=== PATIENT | male | born 1985 | race Caucasian/White ===

== ENCOUNTER 2017-04-30 12:35 | Inpatient (IN) ==
[2017-04-30] MEDS ORDERED: *HR* HYDROmorphone (PF) 1 MG/ML SYRINGE IVP ONE (13:10)
[2017-04-30] MEDS ORDERED: Ketorolac 30 MG/ML VIAL IVP ONE (13:10)
[2017-04-30] MEDS ORDERED: Ondansetron 4 MG/2 ML VIAL IVP ONE (13:10)
--- NOTE | 2017-04-30 13:26 | Emergency Department Note ---
Disposition Clinical Impression: Cholecystitis, acute Disposition: Admitted As Inpatient Time of Disposition: 16:54 General Adult HPI - General Chief complaint: ED Abdominal Pain Stated complaint: RUQ pain x1 day Time Seen by Provider: 04/30/17 12:50 Source: patient Mode of arrival: ambulatory Limitations: no limitations Nursing Notes Reviewed: Yes Vital Signs Reviewed: Yes - History of Present Illness HPI Narrative: 31 yo male with PMHx GERD presents with 16 hour history of colicky RUQ abdominal pain. Patient ate 6 hotdogs last night after which he became nauseated. He has had 4 episodes of nausea and vomitting since then. Patient describes his pain as sharp with radiation to his right back shoulder. He has had similar episodes in the past couple months including one last week that was almost identical in nature and quality but only lasted for 6 hours. This episode is the most severe he has experienced. His last bowel movement was yesterday morning, although he reports experiencing alternating bouts of constipation and diarrhea for the past 3 months. He describes his BM yesterday as "fatty." He denies any dysuria, diarrhea, headaches, substernal chest pain, or lower extremity edema. He has no appetite and hasn't eaten since last night. He reports some subjective fevers, but never measured. Pain Scale: 8 - Related Data Home Medications Medication Instructions Recorded Confirmed RX: No Known Home Drugs 04/30/17 04/30/17 Allergies Allergy/AdvReac Type Severity Reaction Status Date / Time No Known Allergies Allergy Verified 04/30/17 12:42 Constitutional: Denies: fever, weight change Cardiovascular: Denies: chest pain, palpitations, dyspnea on exertion, edema Respiratory: Denies: cough, dyspnea, hemoptysis Gastrointestinal: Reports: abdominal pain, nausea, vomiting. Denies: diarrhea, hematemesis, melena, hematochezia Genitourinary: Denies: urgency, dysuria Neurological: Denies: headache, weakness Past Medical History - Past Medical History Medical history: Reports: no medical history Psychiatric history: Reports: no psych history - Social History Smoking Status: Never smoker Smokeless Tobacco Status: No Alcohol use: Reports: rarely Drug use: Reports: none Physical Exam - General Limitations: no limitations General appearance: alert, in no apparent distress - Head Head exam: atraumatic, normocephalic - Eye Eye exam: Present: normal appearance - Neck Neck exam: Present: normal inspection - Chest Chest inspection: Present: normal inspection, symmetric chest wall rise - Respiratory Respiratory exam: Present: normal lung sounds bilaterally. Absent: respiratory distress, wheezes, stridor - Cardiovascular Cardiovascular exam: Present: normal rhythm, tachycardia, normal heart sounds. Absent: systolic murmur, diastolic murmur, rubs, gallop - Abdominal Exam Abdominal exam: Present: soft, tenderness, normal bowel sounds, Millan's sign. Absent: distention, guarding, rebound Abdominal tenderness: Present: RUQ, moderate Course Course Narrative: Mr. Vasquez is a 31 yo male with PMHx of GERD pw 16 hour history of N/V and colickly RUQ abdominal pain after consumption of 6 hotdogs. A bedside US was performed by Dr. Krishnan which showed some possible biliary sludge. Will order labs , fluids, analgesia, and US gallbladder. - Reevaluation(s) Reevaluation #1: Patient given Dilaudid, Toradol, Zofran, and IV fluids. US of Gallbladder shows no acute abnormalities. Labs show leukocytosis with left shift and an elevated lactic acid. Patient's pain has migrated to include the RLQ as well. No rebound or guarding. Will order CT abdomen and pelvis with IV contrast. Reevaluation #2: CT scan of abdomen and pelvis shows acute cholecystitis. Will admit patient to surgery. Vital Signs Temperature 98.0 F 04/30/17 12:37 Pulse Rate 117 04/30/17 12:37 Respiratory Rate 16 04/30/17 12:37 Blood Pressure 181/131 04/30/17 12:37 O2 Sat by Pulse Oximetry 94 04/30/17 12:37 Temperature 98.0 F 04/30/17 12:37 Pulse Rate 102 04/30/17 16:30 Respiratory Rate 16 04/30/17 16:30 Blood Pressure 156/100 04/30/17 16:30 O2 Sat by Pulse Oximetry 100 04/30/17 16:30 Oxygen Delivery Oxygen Delivery Room Air Medical Decision Making - Medical Records Medical records reviewed: Yes I reviewed the patient's medical records. - Lab Data Lab results reviewed: Yes I reviewed the patient's lab results. Result diagrams: 04/30/17 13:28 04/30/17 13:28 Lab Results 08/02/17 08/02/17 08/02/17 Range/Units 13:28 13:28 13:28 WBC 15.2 H (4.3-11.1) K/mcL RBC 5.15 (4.19-5.50) M/mcL Hgb 14.1 (12.9-16.9) g/dL Hct 44.0 (37.5-50.1) % MCV 85.4 (83.0-100.0) fL MCH 27.4 L (28.0-33.3) pg MCHC 32.0 (31.6-35.5) g/dL RDW 13.0 (11.5-14.5) % Plt Count 347 (140-400) K/mcL MPV 8.9 L (9.4-12.4) fL Immature Gran % 0.3 (0-4) % Seg Neutrophils % 90.1 % Lymphocytes % 5.4 % Monocytes % 4.1 % Eosinophils % 0.0 % Basophils % 0.1 % Neutrophils # 13.7 H (1.6-8.9) K/mcL Lymphocytes # 0.8 (0.6-4.6) K/mcL Monocytes # 0.6 (0.0-1.3) K/mcL Eosinophils # 0.0 (0.0-0.6) K/mcL Basophils # 0.0 (0.0-0.2) K/mcL Sodium 138 (136-145) mEq/L Potassium 4.2 (3.5-4.5) mEq/L Chloride 104 (98-109) mEq/L Carbon Dioxide 27 (19-29) mEq/L BUN 10 (8-26) mg/dL Creatinine 0.92 (0.72-1.25) mg/dL Est GFR ( Amer) > 60 (> 60) Est GFR (Non-Af Amer) > 60 (> 60) BUN/Creatinine Ratio 11 (6-26) Glucose 136 H (70-99) mg/dL Calculated Osmolality 287 (280-300) Lactic Acid 2.5 H (0.5-2.2) mmol/L Calcium 9.7 (8.6-10.8) mg/dL Total Bilirubin 0.5 (0.2-1.2) mg/dL Direct Bilirubin 0.2 (0.0-0.5) mg/dL Indirect Bilirubin 0.3 (0.0-1.2) mg/dL AST 17 (5-34) Units/L ALT 38 (0-55) Units/L Alkaline Phosphatase 105 (38-126) Units/L Serum Total Protein 7.8 (6.0-8.3) g/dL Albumin 4.0 (3.5-5.0) g/dL Globulin 3.8 H (2.4-3.5) g/dL Albumin/Globulin Ratio 1.1 (1.1-2.2) Lipase 10 (8-78) Units/L - Radiology Data Radiology results reviewed: Yes I reviewed the patient's radiology results. Gallbladder Ultrasound 04/30/17 13:10 IMPRESSION: No cholelithiasis or significant dilation of the common duct. Moderate hepatic steatosis. D/ / Jak Hawkins MD / Jak Hawkins MD Interpreting Provider: Jak Hawkins MD Abdomen/Pelvis CT 04/30/17 14:21 IMPRESSION: Mild pericholecystic stranding consistent with mild acute cholecystitis. Suspected small noncalcified gallstones present. Large complex cyst of the spleen. Small nonobstructing calculus in the lower pole of the left kidney. Normal appendix. [id number] fatty infiltration of the liver. D/ / Edin Avila MD / Edin Avila MD Interpreting Provider: Edin Avila MD Attestation Statement - Attestation Attestation: I personally interviewed and examined this patient and my medical decision- making was reviewed with the Resident Physician, Dr. Loco. I agree with the documented findings, disposition and treatment plan as described except to the extent set forth below. Patient is a 31-year-old obese white male who presents to emergency department today with complaints of a 24-hour history of moderate right upper quadrant abdominal pain that radiates through to the tip of the shoulder blade associated with nausea and vomiting. Patient states he had a similar episode about a week ago but had resolved spontaneously. The current episode began following him attending a baseball game where he had had 6 hotdogs. Patient has reproducible tenderness with mild guarding in the right upper quadrant and also some mild tenderness to palpation in the right mid and low abdomen. Patient also states that he felt constipated associated with these symptoms and attempted an enema last night with no increase in stool output. Physical exam findings as documented. And arrived initially hypertensive but following pain medicine administration and had improvement in his vital signs. Labs show mild leukocytosis with left shift but normal hepatic panel. We were clinically suspicious of gallbladder disease so patient was sent initially for right upper quadrant ultrasound. Ultrasound report stated that there were fatty liver changes but no acute findings on ultrasound. Patient remains moderately tender in the right upper quadrant so we wanted to ensure there was no other etiology for this pain such as retrocecal appendicitis or bowel issue. Patient went for CT scan of the abdomen and pelvis with IV contrast, and radiology interpreted the scan with acute cholecystitis. IV antibiotics were initiated and case was discussed with Dr. Ulloa who is on-call for surgery. He agreed to consult on the patient and recommended admission to medicine. Case was discussed with the hospitalist who accepted patient for admission. Patient remains hemodynamically stable and comfortable at this time with stable vital signs.
[2017-04-30 13:35] LABS: Basophils % 0.1 %; Hemoglobin 14.1 g/dL (12.9-16.9); Immature Granulocytes % 0.3 % (0-4); Lymphocytes # 0.8 K/mcL (0.6-4.6); Lymphocytes % 5.4 %; Mean Corpuscular Hemoglobin 27.4 pg (28.0-33.3); Mean Corpuscular Volume 85.4 fL (83.0-100.0); Mean Platelet Volume 8.9 fL (9.4-12.4); Monocytes # 0.6 K/mcL (0.0-1.3); Monocytes % 4.1 %; Neutrophils # 13.7 K/mcL (1.6-8.9); Platelet Count 347 K/mcL (140-400); Red Blood Count 5.15 M/mcL (4.19-5.50); Segmented Neutrophils % 90.1 %
[2017-04-30] MEDS ORDERED: 0.9 % Sodium Chloride 1,000 ML IVC ONE (13:47)
[2017-04-30 13:49] LABS: Alanine Aminotransferase 38 Units/L (0-55); Albumin/Globulin Ratio 1.1 (1.1-2.2); Alkaline Phosphatase 105 Units/L (38-126); Aspartate Amino Transferase 17 Units/L (5-34); BUN/Creatinine Ratio 11 (6-26); Bilirubin,Direct 0.2 mg/dL (0.0-0.5); Bilirubin,Indirect 0.3 mg/dL (0.0-1.2); Bilirubin,Total 0.5 mg/dL (0.2-1.2); Blood Urea Nitrogen 10 mg/dL (8-26); Calcium 9.7 mg/dL (8.6-10.8); Carbon Dioxide 27 mEq/L (19-29); Chloride 104 mEq/L (98-109); Globulin 3.8 g/dL (2.4-3.5); Glucose 136 mg/dL (70-99); Lipase 10 Units/L (8-78); Osmolality,Calculated 287 (280-300); Potassium 4.2 mEq/L (3.5-4.5); Sodium 138 mEq/L (136-145); Total Protein 7.8 g/dL (6.0-8.3); eGFR For African Americans > 60 (> 60); eGFR For Non-African Americans > 60 (> 60)
[2017-04-30] MEDS ORDERED: Piperacillin/Tazobactam 3.375 GM in D5% in Water (Mini-Bag+) 100 ML IVPB ONE (16:14)
[2017-04-30] MEDS: 0.9 % Sodium Chloride 1,000 ML IVC SCH ×4 (16:37→21:14)
[2017-04-30] MEDS ORDERED: Ondansetron 4 MG/2 ML VIAL IVP PRN (16:56)
[2017-04-30] MEDS ORDERED: Naloxone 0.4 MG/ML INJ IVP PRN (16:56)
--- NOTE | 2017-04-30 17:12 | Internal Med History&Physical ---
<Rey Maya J - Last Filed: 04/30/17 17:08> Date of Encounter: 04/30/17 Time of Encounter: 17:08 Assessment and Plan (1) Cholecystitis, acute Current visit: Yes Status: Acute Presented with abdominal pain that started the evening prior to admission. Meets sepsis criteria with WBC 15K, Lactic acid 2.5 and subjective fevers. Does not appear toxic or acute. ABD CT showed cholecystitis zosyn given in the ED. Changed ATB to Rocephin and Flagyl Dilaudid for pain management, Zofran for nausea. CBC, BMP, Lipase. General surgery was consulted. Repeat lactic acid pending. (2) High blood pressure Current visit: Yes Status: Acute Blood pressure elevated in the ED. Likely d/t uncontrolled pain but may have underlying HTN. Will continue to monitor BP and initiate antihypertensives as needed. Qualifiers: Hypertension type: unspecified Qualified Code(s): I10 - Essential (primary ) hypertension (3) DVT prophylaxis Current visit: Yes Status: Acute Critical access hospital Internal Medicine - H&P: HPI Chief complaint: abdominal pain Admitted From: Home Plans for Post Hospital Care: Home History of present illness: Mr. Vasquez is a 31 year old male with no PMH who presented to [facility] with abdominal pain on 04-30-17. He was found to have cholecystitis and was admitted for medical management and surgical consult. Information obtained from chart review and patient report. ABD pain started yesterday evening after eating 6 hotdogs and drinking a beer. Taking Acetaminophen at home and for abdominal pain and reports it not helping. Past Med Surg Social Fam HX - Past Medical History Medical history: no medical history Psychiatric history: no psych history - Past Surgical History Surgical History: other (tonsillectomy) - Social History Smoking Status: Never smoker Smokeless Tobacco Status: No Alcohol use: rarely Drug use: none - Additional Family History Additional family history: CAD grandparents Internal Medicine - H&P: Meds No Known Home Drugs 04/30/17 [History] Allergies No Known Allergies Allergy (Verified 04/30/17 12:42) All Systems PM: A 10-system review of systems was performed and is negative for pertinent findings except as documented above in the HPI. - Constitutional Constitutional: no chills, no fever(s), no night sweats - EENT Eyes: no change in vision, no discharge, no pain, no photophobia Ears: no ear discharge, no ear pain, no tinnitus Nose, mouth and throat: no dysphagia, no nasal discharge, no neck pain, no sore throat - Cardiovascular Cardiovascular ROS IM: no chest pain, no diaphoresis, no dyspnea, no lightheadedness, no palpitations, no syncope - Respiratory Respiratory: no cough, no dyspnea, no wheezing, no excessive phlegm production - Gastrointestinal Gastrointestinal: abdominal pain, constipation, nausea, no diarrhea, no hematemesis, no hematochezia, no melena, no vomiting - Musculoskeletal Musculoskeletal ROS IM: no numbness, no tingling - Integumentary Integumentary IM: no rash, no unusual bruising - Neurological Neurological ROS: no confusion, no convulsions, no focal weakness, no numbness, no tingling, no tremor(s) - Hematologic/Lymphatic Hematologic/Lymphatic: no easy bruising - Constitutional Vitals: Temp Pulse Resp BP Pulse Ox 98.0 F 102 16 154/98 100 04/30/17 12:37 04/30/17 16:30 04/30/17 17:00 04/30/17 17:00 04/30/17 16:30 - Head Head exam: Present: atraumatic, normocephalic - Eye Eye exam: Present: PERRL, conjuntiva pink, sclera anicteric Pupils: Present: PERRL - Neck Neck exam general surgery: Present: supple, trachea midline. Absent: lymphadenopathy - Respiratory Respiratory exam: Present: CTAB. Absent: accessory muscle use, rales, rhonchi, wheezes - Cardiovascular Cardiovascular exam: Present: RRR, +S1, +S2. Absent: diastolic murmur, gallop, rubs, systolic murmur - GI/Abdominal GI/Abdominal exam: Present: normal bowel sounds, soft, tenderness, no peritoneal signs. Absent: distended Additional comments: RUQ tenderness - Extremities Exam Extremities exam: Present: warm, radial pulses palpable and symetrical. Absent : calf tenderness, cyanotic, pedal edema - Neurological Exam Neurological exam: Present: CN II-XII intact, oriented X3, no focal deficits. Absent: pronater drift, facial droop, speech deficit - Skin Skin exam: Present: dry, intact Internal Med - H&P Results - Labs CBC & Chem 7: 04/30/17 13:28 04/30/17 13:28 <Hammad Shrestha H - Last Filed: 04/30/17 17:48> Date of Encounter: 04/30/17 Internal Medicine - H&P: HPI History of present illness: Mr. Vasquez is a 31 year old male All Systems PM: A 10-system review of systems was performed and is negative for pertinent findings except as documented above in the HPI. - Constitutional Vitals: Temp Pulse Resp BP Pulse Ox 98.0 F 95 16 148/88 96 04/30/17 17:17 04/30/17 17:17 04/30/17 17:17 04/30/17 17:17 04/30/17 17:17 Internal Med - H&P Results - Labs CBC & Chem 7: 04/30/17 13:28 04/30/17 13:28 - Attending Attestation Acute cholecystitis, continue ciprofloxacin and Flagyl IV Nothing by mouth, surgery consult Time spent on this admission 40 minutes For this encounter, I have reviewed the FERRYBO[employer] OPERATOR or PA documentation, treatment plan, and medical decision making; and I have had face to face time with this patient.
[2017-04-30] MEDS: MetroNIDAZOLE 500 MG/100 ML 500 MG/100 ML BAG IVPB SCH (23:55)
[2017-05-01] MEDS: *HR* HYDROmorphone (PF) 1 MG/ML SYRINGE IVP PRN ×2 (00:03→06:30)
[2017-05-01 04:34] LABS: Basophils % 0.3 %; Eosinophils # 0.1 K/mcL (0.0-0.6); Eosinophils % 0.9 %; Hematocrit 38.9 % (37.5-50.1); Hemoglobin 12.7 g/dL (12.9-16.9); Immature Granulocytes % 0.2 % (0-4); Lymphocytes # 1.4 K/mcL (0.6-4.6); Lymphocytes % 14.2 %; Mean Corpuscular HGB Conc 32.6 g/dL (31.6-35.5); Mean Corpuscular Hemoglobin 27.9 pg (28.0-33.3); Mean Corpuscular Volume 85.3 fL (83.0-100.0); Monocytes # 0.9 K/mcL (0.0-1.3); Monocytes % 9.5 %; Neutrophils # 7.3 K/mcL (1.6-8.9); Platelet Count 284 K/mcL (140-400); Red Blood Count 4.56 M/mcL (4.19-5.50); Red Cell Distribution Width 13.3 % (11.5-14.5); Segmented Neutrophils % 74.9 %
[2017-05-01 04:46] LABS: Hemoglobin A1C 5.5 %
[2017-05-01 04:55] LABS: Alanine Aminotransferase 30 Units/L (0-55); Albumin 3.2 g/dL (3.5-5.0); Alkaline Phosphatase 88 Units/L (38-126); Aspartate Amino Transferase 16 Units/L (5-34); BUN/Creatinine Ratio 10 (6-26); Bilirubin,Total 0.5 mg/dL (0.2-1.2); Blood Urea Nitrogen 9 mg/dL (8-26); Calcium 8.4 mg/dL (8.6-10.8); Carbon Dioxide 28 mEq/L (19-29); Chloride 106 mEq/L (98-109); Globulin 3.3 g/dL (2.4-3.5); Glucose 114 mg/dL (70-99); Lipase 81 Units/L (8-78); Osmolality,Calculated 288 (280-300); Potassium 3.9 mEq/L (3.5-4.5); Sodium 139 mEq/L (136-145); Total Protein 6.5 g/dL (6.0-8.3); eGFR For African Americans > 60 (> 60); eGFR For Non-African Americans > 60 (> 60)
[2017-05-01] MEDS ORDERED: *HR* Enoxaparin 40 MG/0.4 ML SYRINGE SQ SCH (06:00)
[2017-05-01] MEDS: MetroNIDAZOLE 500 MG/100 ML 500 MG/100 ML BAG IVPB SCH (07:53)
--- NOTE | 2017-05-01 08:08 | Anesthesia Evaluation PreOp ---
Date of Encounter: 05/01/17 Time of Encounter: 08:01 - Past History Planned Operation: Lap Maxine Cardiac History: HTN Anesthesia History: No Prior Anesthetic Complications, Past Anesthesia (T&A 1991 ) Alcohol Use: occasionally Drug use: none Medications and Allergies No Known Home Drugs 04/30/17 [History] Allergies No Known Allergies Allergy (Verified 04/30/17 12:42) - Meds/Allergy Pre-op Review Medications Reviewed: Yes Allergies Reviewed: Yes Beta Blockers on Current Med List: No Anesthesia Results - Labs 05/01/17 03:53 05/01/17 03:53 Laboratory Results WBC 9.7 K/mcL (4.3-11.1) 05/01/17 03:53 RBC 4.56 M/mcL (4.19-5.50) 05/01/17 03:53 Hgb 12.7 g/dL (12.9-16.9) L 05/01/17 03:53 Hct 38.9 % (37.5-50.1) 05/01/17 03:53 MCV 85.3 fL (83.0-100.0) 05/01/17 03:53 MCH 27.9 pg (28.0-33.3) L 05/01/17 03:53 MCHC 32.6 g/dL (31.6-35.5) 05/01/17 03:53 RDW 13.3 % (11.5-14.5) 05/01/17 03:53 Plt Count 284 K/mcL (140-400) 05/01/17 03:53 MPV 9.0 fL (9.4-12.4) L 05/01/17 03:53 Immature Gran % 0.2 % (0-4) 05/01/17 03:53 Seg Neutrophils % 74.9 % 05/01/17 03:53 Lymphocytes % 14.2 % 05/01/17 03:53 Monocytes % 9.5 % 05/01/17 03:53 Eosinophils % 0.9 % 05/01/17 03:53 Basophils % 0.3 % 05/01/17 03:53 Neutrophils # 7.3 K/mcL (1.6-8.9) 05/01/17 03:53 Lymphocytes # 1.4 K/mcL (0.6-4.6) 05/01/17 03:53 Monocytes # 0.9 K/mcL (0.0-1.3) 05/01/17 03:53 Eosinophils # 0.1 K/mcL (0.0-0.6) 05/01/17 03:53 Basophils # 0.0 K/mcL (0.0-0.2) 05/01/17 03:53 Sodium 139 mEq/L (136-145) 05/01/17 03:53 Potassium 3.9 mEq/L (3.5-4.5) 05/01/17 03:53 Chloride 106 mEq/L (98-109) 05/01/17 03:53 Carbon Dioxide 28 mEq/L (19-29) 05/01/17 03:53 BUN 9 mg/dL (8-26) 05/01/17 03:53 Creatinine 0.89 mg/dL (0.72-1.25) 05/01/17 03:53 Est GFR ( Amer) > 60 (> 60) 05/01/17 03:53 Est GFR (Non-Af Amer) > 60 (> 60) 05/01/17 03:53 BUN/Creatinine Ratio 10 (6-26) 05/01/17 03:53 Glucose 114 mg/dL (70-99) H 05/01/17 03:53 POC Glucose 111 (58-89) H 05/01/17 05:14 Est Mean Plasma Glucose 111 mg/dl 05/01/17 03:53 Hemoglobin A1c 5.5 % (-5.6) 05/01/17 03:53 Calculated Osmolality 288 (280-300) 05/01/17 03:53 Lactic Acid 1.4 mmol/L (0.5-2.2) 04/30/17 21:29 Calcium 8.4 mg/dL (8.6-10.8) L 05/01/17 03:53 Total Bilirubin 0.5 mg/dL (0.2-1.2) 05/01/17 03:53 Direct Bilirubin 0.2 mg/dL (0.0-0.5) 04/30/17 13:28 Indirect Bilirubin 0.3 mg/dL (0.0-1.2) 04/30/17 13:28 AST 16 Units/L (5-34) 05/01/17 03:53 ALT 30 Units/L (0-55) 05/01/17 03:53 Alkaline Phosphatase 88 Units/L (38-126) 05/01/17 03:53 Serum Total Protein 6.5 g/dL (6.0-8.3) 05/01/17 03:53 Albumin 3.2 g/dL (3.5-5.0) L 05/01/17 03:53 Globulin 3.3 g/dL (2.4-3.5) 05/01/17 03:53 Albumin/Globulin Ratio 1.0 (1.1-2.2) L 05/01/17 03:53 Lipase 81 Units/L (8-78) H 05/01/17 03:53 Impressions Gallbladder Ultrasound 04/30/17 13:10 IMPRESSION: No cholelithiasis or significant dilation of the common duct. Moderate hepatic steatosis. D/ / Jak Hawkins MD / Jak Hawkins MD Interpreting Provider: Jak Hawkins MD Abdomen/Pelvis CT 04/30/17 14:21 IMPRESSION: Mild pericholecystic stranding consistent with mild acute cholecystitis. Suspected small noncalcified gallstones present. Large complex cyst of the spleen. Small nonobstructing calculus in the lower pole of the left kidney. Normal appendix. [id number]-[id number] fatty infiltration of the liver. D/ / Edin Avila MD / Edin Avila MD Interpreting Provider: Edin Avila MD Anesthesia Exam Vital Signs Temp Pulse Resp BP Pulse Ox 05/01/17 07:31 98.2 F 62 16 145/90 98 05/01/17 03:44 98.0 F 82 16 139/91 93 04/30/17 19:07 98.7 F 82 16 144/85 99 04/30/17 17:17 98.0 F 95 16 148/88 96 04/30/17 17:00 16 154/98 04/30/17 16:30 102 16 156/100 100 04/30/17 16:00 73 16 163/94 98 04/30/17 15:30 76 16 156/97 98 04/30/17 15:00 97 16 148/97 97 04/30/17 14:30 100 16 160/99 98 04/30/17 14:05 99 16 189/101 96 04/30/17 12:37 98.0 F 117 16 181/131 94 Intake and Output 04/30/17 05/01/17 05/01/17 23:59 07:59 15:59 Intake Total 1999 100 / 100 Output Total 350 / 350 200 / 200 Balance 1650 / 1650 -100 / -100 Intake: IV Fluids 1999 100 / 100 0.9 % Sodium Chloride 1, 1900 / 1900 000 ML @ 100 mls/hr IVC . Q10H [facility]Y Rx#:[id number] Flagyl Premix 500 MG/100 100 / 100 ML 500 mg In 100 ml @ 100 mls/hr IVPB Q8HR AMY Rx# :[id number] Rocephin 1,000 MG In 100 / 100 Dextrose 5% (Minibag+) 100 ML 100 ML @ 200 mls/ hr IVPB Q24H AMY Rx#: [id number] Oral 0 / 0 0 / 0 Output: Urine 350 / 350 200 / 200 Other: Meal NPO NPO Percent of Meal Consumed 0% 0% Weight 138.119 kg Blood Glucose* 119 111 Patient Weight 05/01/17 23:59 Weight 138.119 kg Height: 5'10" Weight: 304# BMI =44 NPO (# of Hours): Mnoc - HEENT Pupil (Motor): Pupils equal, EOMI Mallampati: II Teeth: Normal Oral Opening: Greater than 3 - RELIEF COOK LOC: Oriented RELIEF COOK Motor: Normal RUE, Normal LUE, Normal RLE, Normal LLE, Normal Face RELIEF COOK Sensory: Normal: RUE, LUE, RLE, LLE, Face - Cardiac Rhythm: Regular Murmur: None - Pulmonary Breath Sounds: bilateral Clear Respiratory Effort: Symmetrical Anesthesia Assess/Plan ASA Score: 3 (MO/BMI = 44,) Modified Sk[place] Scale for Level of Consciousness: Cooperative, oriented, and tranquil Anesthetic Plan: General Monitoring Plan: Standard Monitors Recovery Plan: PACU Anes Supervising Prov Stmt: PT seen/evaluated, R&B Discussed, questions answered and consent obtained. - MD Mikey
[2017-05-01] MEDS ORDERED: *HR* Propofol 200 MG/20 ML VIAL IVP ONE (08:22)
[2017-05-01] MEDS ORDERED: Neostigmine Methylsulfate 3 MG/3 ML SYRINGE ONE (08:22)
[2017-05-01] MEDS ORDERED: Dexamethasone 4 MG/ML VIAL ONE (08:22)
[2017-05-01] MEDS ORDERED: Ondansetron 4 MG/2 ML VIAL ONE (08:22)
[2017-05-01] MEDS ORDERED: *HR* Rocuronium Bromide 50 MG/5 ML VIAL ONE (08:22)
[2017-05-01] MEDS ORDERED: *HR* Midazolam HCl 2 MG/2 ML VIAL ONE (08:22)
[2017-05-01] MEDS ORDERED: Lidocaine -MPF 2% 2 ML VIAL ONE (08:23)
[2017-05-01] MEDS ORDERED: *HR* HYDROmorphone (PF) 1 MG/ML SYRINGE IVP PRN ×2 (08:24→11:46)
[2017-05-01] MEDS ORDERED: *HR* HYDROmorphone 2 MG/ML SYRINGE ONE (08:29)
[2017-05-01] MEDS ORDERED: CloNIDine Patch 0.1 MG PATCH (WEEKLY) ONE (08:29)
[2017-05-01] MEDS ORDERED: Gabapentin 300 MG CAPSULE ONE (08:30)
[2017-05-01] MEDS ORDERED: Acetaminophen IV 1,000 MG/100 ML INFUS..BTL ONE (08:30)
[2017-05-01] MEDS ORDERED: Pantoprazole 40 MG VIAL IVP SCH (09:00)
--- NOTE | 2017-05-01 10:56 | Anesthesia Evaluation Post Op ---
Date of Encounter: 05/01/17 Time of Encounter: 10:30 - Vital Signs Vital Signs: Vital Signs/O2 Sat/Glucose, Most Current Temp Pulse Resp BP Pulse Ox 05/01/17 10:25 97.6 F 64 14 108/51 93 05/01/17 10:15 92 17 101/60 96 05/01/17 10:05 56 14 121/62 96 05/01/17 09:55 97.6 F 81 16 126/61 98 05/01/17 07:31 98.2 F 62 16 145/90 98 - Airway Airway: Non-obstructed - Cardiovascular Regular Rate - Mental Status Mental Status: Alert & Oriented, Answers Appropriately - Pain Pain Scale: 3 Pain Scale used: Numeric (1 - 10) - Nausea Vomiting Nausea Vomiting: Not Present - Hydration Hydration: Ice chips, Has not voided - Discharge PostOp Status: Transfer Patient to floor Anes Supervising Prov Stmt: Pt seen/evaluated, VSS and pt has met criteria for discharge to floor. - MD Mikey
--- NOTE | 2017-05-01 11:13 | Operative Note ---
Date of procedure: 05/01/17 Pre-op diagnosis: acute cholecystitis Post-op diagnosis: same Procedure: Laparoscopic Cholecystectomy with Cholangiogram Anesthesia: NATHALY Surgeon: Atul Ulloa Estimated blood loss (cc): 15 Condition: stable Disposition: same day Procedure in Detail: After informed consent this patient was taken the operating room placed supine position. After adequate sedation anesthesia the abdomen was prepped and draped. A proper timeout was performed. Two towel clamps are placed at the umbilicus and a Veres needle was inserted into the abdomen. A 5 mm incision was made at the umbilicus. A 12 mm incision was made in the subxiphoid region. Two 5 mm incisions were made in the right upper quadrant that were 4 finger breadths and 6 finger breadths below the costal margin. The gallbladder was identified, retracted anteriorly and cephalad, and the infundibulum was skeletonized. The cystic duct was easily identified and was dissected free. A ductotomy was created in the cystic duct. A taut catheter was placed within the cystic duct and clipped. A cholangiogram was performed. Contrast filled the cystic duct, common hepatic duct, hepatic radicles, and the distal common bile duct. There was flow of contrast into the duodenum. Once this was confirmed the clippers removed, the taut catheter was removed as well, and the cystic duct was clipped distally. The cystic duct was then transected with scissors. The gallbladder was resected off the liver surface. There was excellent hemostasis. The gallbladder was then retrieved through the 12 mm cannula site. At this point the abdomen was suctioned dry and the pneumoperitoneum was then evacuated. All ports were removed. The 12 mm cannula site was closed with an 0 Vicryl suture in [id number] fashion. The skin was closed with 4-0 Vicryl suture. Dermabond was placed as well. All instrument counts and needle counts are correct in the operation. She tolerated the procedure well and was transferred to the PACU in stable condition.
[2017-05-01] MEDS ORDERED: Acetaminophen 325 MG TABLET PO PRN (11:46)
[2017-05-01] MEDS ORDERED: *HR* OxyCODONE/APAP 5/325 TABLET PO PRN (11:46)
--- NOTE | 2017-05-01 14:32 | Internal Med Progress Note ---
Date of Encounter: 05/01/17 Time of Encounter: 11:20 - Assessment and plan (1) Cholecystitis, acute Current Visit: Yes Status: Acute Assessment and plan: Sepsis present on admission secondary to acute cholecystitis - now improved Status post laparoscopic cholecystectomy done this morning by Patient is doing well postoperatively Continue empiric IV Rocephin and IV Flagyl IV Dilaudid as needed for pain, docusate, IV Protonix, IV fluids Anticipate discharge home in a.m. (2) DVT prophylaxis Current Visit: Yes Status: Acute Assessment and plan: Continue Lovenox subcutaneous - Time Spent With Patient 25 - 35 minutes - Subjective Interval history: Exam this morning after laparoscopic cholecystectomy. Patient is awake and alert. Not in any distress. Denies chest pain or shortness of breath. States his account pain has now resolved. No nausea or vomiting. No fever. No other acute events or complaints. Patient was admitted yesterday for acute cholecystitis. - Constitutional Vitals: Temp Pulse Resp BP Pulse Ox 97.5 F L 68 12 128/87 95 05/01/17 11:50 05/01/17 11:50 05/01/17 11:50 05/01/17 11:50 05/01/17 11:50 General appearance: Present: A&O X 3, morbidly obese, pleasant, no acute distress, answers questions appropriately - Head Head exam: Present: atraumatic - Eye Eye exam: Present: EOMI - ENT ENT exam: Present: mucous membranes moist - Neck Neck exam general surgery: Present: supple - Respiratory Respiratory exam: Present: CTAB. Absent: rales, rhonchi, stridor, wheezes, tachypnea - Cardiovascular Cardiovascular exam: Present: RRR, +S1, +S2 - GI/Abdominal GI/Abdominal exam: Present: soft, no peritoneal signs. Absent: distended, firm , guarding, rigid, tenderness - Extremities Exam Extremities exam: Present: radial pulses palpable and symetrical. Absent: cyanotic, pedal edema, tenderness - Neurological Exam Neurological exam: Present: alert, oriented X3, no focal deficits Internal Medicine: Result - Labs CBC & Chem 7: 05/01/17 03:53 05/01/17 03:53 Labs: Short CBC 05/01/17 Range/Units 03:53 WBC 9.7 (4.3-11.1) K/mcL Hgb 12.7 L (12.9-16.9) g/dL Hct 38.9 (37.5-50.1) % Plt Count 284 (140-400) K/mcL Neutrophils # 7.3 (1.6-8.9) K/mcL BMP 05/01/17 03:53 Sodium 139 Potassium 3.9 Chloride 106 Carbon Dioxide 28 BUN 9 Creatinine 0.89 Glucose 114 H Calcium 8.4 L Liver Function 05/01/17 Range/Units 03:53 Total Bilirubin 0.5 (0.2-1.2) mg/dL AST 16 (5-34) Units/L ALT 30 (0-55) Units/L Alkaline Phosphatase 88 (38-126) Units/L Albumin 3.2 L (3.5-5.0) g/dL - Impressions Impressions Cholangiogram,Operative 05/01/17 00:00 IMPRESSION: 1. Normal intraoperative cholangiogram. D/ / 05/01/2017 09:54:39 Maty Ariza MD / Negar Jo Interpreting Provider: Maty Ariza MD - VTE Documentation of Mechanical Device: Intermittent pneumatic compression device Consult Discharge Plan - Plan Referrals: NONE,PCP [Primary Care Provider] -
--- NOTE | 2017-05-01 16:07 | Discharge Summary ---
Date of Encounter: 05/01/17 Time of Encounter: 16:00 - Discharge Diagnosis (1) Cholecystitis, acute Priority: Primary Status: Resolved (2) High blood pressure Priority: Secondary Status: Chronic Qualifiers: Hypertension type: unspecified Qualified Code(s): I10 - Essential (primary ) hypertension - Discharge Medications Prescriptions: OxyCODONE/APAP 5/325 [Percocet 5/325 MG] 1 each PO Q4HR PRN #30 tab PRN Reason: Moderate Pain Ciprofloxacin [Cipro] 500 mg PO BID #14 tablet Docusate [Colace] 100 mg PO BID #30 metroNIDAZOLE [Flagyl] 500 mg PO BID #14 tablet Home Medications: Ciprofloxacin [Cipro] 500 mg PO BID #14 tablet 05/01/17 [Rx] Docusate [Colace] 100 mg PO BID #30 05/01/17 [Rx] OxyCODONE/APAP 5/325 [Percocet 5/325 MG] 1 each PO Q4HR PRN #30 tab 05/01/17 [Rx ] metroNIDAZOLE [Flagyl] 500 mg PO BID #14 tablet 05/01/17 [Rx] Allergies/Adverse Reactions: Allergies No Known Allergies Allergy (Verified 04/30/17 12:42) General Surgery Exam Initial Vital Signs Temp Pulse Resp BP Pulse Ox 98.0 F 117 16 181/131 94 04/30/17 12:37 04/30/17 12:37 04/30/17 12:37 04/30/17 12:37 04/30/17 12:37 - General physical appearance well developed, well nourished, no distress - Eyes normal ocular movement - ENT normal mucosa, atraumatic, normocephalic - Neck trachea midline - Respiratory normal respiratory effort, clear to auscultation - Cardiovascular Cardiovascular exam: Present: RRR - Abdomen Abdomen general surgery: Present: bowel sounds present, soft, tender (Expected postoperative tenderness) - Incision Incision: Present: clean and dry, intact - Integumentary Integumentary general surgery: Present: warm and dry - Neurologic Present: CN 2-12 grossly intact - Musculoskeletal Present: normal gait, normal posture - Psychiatric Psychiatric general surgery: Present: appropriate, oriented to person, oriented to place, oriented to time, speech is normal, memory intact Date of admission: 04/30/17 16:56 Primary care physician: PCP NONE Discharging clinician: Atul Boss. Towner) Anticipated date of discharge: 05/01/17 - Patient Status Disposition: Home, Self-Care Condition: Good Functional capacity at discharge: independent ambulation Overall status at discharge: patient is progressing back to baseline - Discharge Instructions Follow Up With: NONE,PCP [Primary Care Provider] - Tabatha Santoro, [employer] [Advanced Practice Nurse] - 05/15/17 10:30 am (Surgery follow-up) Additional Instructions: #1 may shower 05/02/17, no tub bath or swimming for 2 weeks #2 wash incisions with soap and water and pat dry daily #3 no lifting, pushing, pulling more than 15 pounds for the next 2 weeks #4 no driving until off narcotics for 24 hours and able to safely react in the car #5 may climb stairs - Diet and Activity Activity: other (See additional instructions about) Diet: advance to your usual diet - Hospital Course Hospital course: Mr. Vasquez is a 31 year old male presented to the hospital with complaints of abdominal pain. He was found to have acute cholecystitis. He was started on IV antibiotics and taken to the operating room with Dr. Ulloa for laparoscopic cholecystectomy with cholangiogram. He is tolerating a liquid diet without nausea or vomiting. His vital signs are stable and he is afebrile. His pain is well-controlled. He is voiding and ambulating without difficulty. We will begin discharge planning to home and plan for outpatient follow-up in the next 10-14 days. - Time Spent with Patient Total time spent providing and/or coordinating discharge services: Less than 30 minutes Labs on day of discharge: Labs from last 24 hours 05/01/17 05/01/17 05/01/17 05:14 03:53 03:53 WBC RBC Hgb Hct MCV MCH MCHC RDW Plt Count MPV Immature Gran % Seg Neutrophils % Lymphocytes % Monocytes % Eosinophils % Basophils % Neutrophils # Lymphocytes # Monocytes # Eosinophils # Basophils # Sodium 139 Potassium 3.9 Chloride 106 Carbon Dioxide 28 BUN 9 Creatinine 0.89 Est GFR ( Amer) > 60 Est GFR (Non-Af Amer) > 60 BUN/Creatinine Ratio 10 Glucose 114 H POC Glucose 111 H Est Mean Plasma Glucose 111 Hemoglobin A1c 5.5 Calculated Osmolality 288 Lactic Acid Calcium 8.4 L Total Bilirubin 0.5 AST 16 ALT 30 Alkaline Phosphatase 88 Serum Total Protein 6.5 Albumin 3.2 L Globulin 3.3 Albumin/Globulin Ratio 1.0 L Lipase 81 H 05/01/17 04/30/17 04/30/17 03:53 23:11 21:29 WBC 9.7 RBC 4.56 Hgb 12.7 L Hct 38.9 MCV 85.3 MCH 27.9 L MCHC 32.6 RDW 13.3 Plt Count 284 MPV 9.0 L Immature Gran % 0.2 Seg Neutrophils % 74.9 Lymphocytes % 14.2 Monocytes % 9.5 Eosinophils % 0.9 Basophils % 0.3 Neutrophils # 7.3 Lymphocytes # 1.4 Monocytes # 0.9 Eosinophils # 0.1 Basophils # 0.0 Sodium Potassium Chloride Carbon Dioxide BUN Creatinine Est GFR ( Amer) Est GFR (Non-Af Amer) BUN/Creatinine Ratio Glucose POC Glucose 115 H Est Mean Plasma Glucose Hemoglobin A1c Calculated Osmolality Lactic Acid 1.4 Calcium Total Bilirubin AST ALT Alkaline Phosphatase Serum Total Protein Albumin Globulin Albumin/Globulin Ratio Lipase 04/30/17 04/30/17 17:22 17:14 WBC RBC Hgb Hct MCV MCH MCHC RDW Plt Count MPV Immature Gran % Seg Neutrophils % Lymphocytes % Monocytes % Eosinophils % Basophils % Neutrophils # Lymphocytes # Monocytes # Eosinophils # Basophils # Sodium Potassium Chloride Carbon Dioxide BUN Creatinine Est GFR ( Amer) Est GFR (Non-Af Amer) BUN/Creatinine Ratio Glucose POC Glucose 119 H Est Mean Plasma Glucose Hemoglobin A1c Calculated Osmolality Lactic Acid 1.9 Calcium Total Bilirubin AST ALT Alkaline Phosphatase Serum Total Protein Albumin Globulin Albumin/Globulin Ratio Lipase - Impressions ITS Impressions Cholangiogram,Operative 05/01/17 00:00 IMPRESSION: 1. Normal intraoperative cholangiogram. D/ / 05/01/2017 09:54:39 Maty Ariza MD / Negar Jo Interpreting Provider: Maty Ariza MD
[2017-05-01 17:23] VITALS: BP 120/77
== END 2017-05-01 18:04 | disposition home or self-care (01) | DRG 418 ==
LOC: EMEROO 12:35 → 3ANU 12:35
PROVIDERS: ADMIT Nurse Practitioner; ATTEND Family Medicine